=== PATIENT | female | born 1980 | race Caucasian/White ===

== ENCOUNTER 2016-09-30 01:28 | Emergency (ER) | payer OTHER ==
[~2016-09-30] VITALS: Ht 172.7 cm; Wt 69.5 kg
[2016-09-30 01:38] VITALS: BP 121/86; PULSE 98; RESP 16; O2SAT 100
--- NOTE | 2016-09-30 02:09 | ED.REPORT ---
HPI-Abd Pain F Under 40 Date of Service Sep 30, 2016 ED Provider: Roel Luque MD A 36 year old female with a medical history including ovarian cyst, peritoneal adhesions, and chronic pain issues from endometriosis presents to the ED with RLQ abdominal pain onset 0300 yesterday. The pain radiates to her right inguinal region. Associated symptoms include fever (high of 101) and generalized myalgias. The patient denies vaginal discharge or other symptoms. She was seen in the [facility] ED at 1900 last night where she received an abdominal CT and was diagnosed with ureterolithiasis, renal colic, and UTI. She was treated with IV fluids and Dilaudid but did not receive a prescription for pain medication due to multiple recent prescriptions and requests one now. She takes pain medication regularly for chronic pelvic pain. Review of her records from [facility] revealed that she had a 3 mm nonobstructive stone in the right kidney, no evidence of hydronephrosis, and essentially negative urinalysis apart from some trace leukocyte esterase. Source of her pain is not clear. She has had two prior episodes of endometritis/PID, and feels this is somewhat similar. Nursing Notes Stated Complaint: KIDNEY PAIN Chief Complaint: Female Abdominal Pain Nursing Notes Reviewed: Yes Allergies: Uncoded Allergies: CONTRAST (Allergy, Intermediate, HIVES, 09/30/16) Scheduled Doxycycline Monohyd (Doxycycline Monohyd) 100 Mg Tablet 100 MG PO BID Metronidazole (Flagyl) 500 Mg Tablet 500 MG PO Q8H Ondansetron ODT (Ondansetron ODT) 8 Mg Tab.rapdis 8 MG PO QID Scheduled PRN Naproxen (Naprosyn) 500 Mg Tablet 500 MG PO BID PRN PRN For Pain Tramadol (Tramadol) 50 Mg Tablet 100 MG PO Q6H PRN PRN For Pain General Time Seen by : 01:59 Chief Complaint Abdominal pain Hx Obtained From: Patient Arrived By: Walk-in Sudden in Onset?: Yes Onset Occurred: Yesterday Symptom Duration: Since onset Location: : RLQ Quality: Painful Radiation: : Inguinal right Severity: Current: Moderate Severity: Maximum: Moderate Associated with: Reports: Fever Pertinent Negative: Relieved by nothing Context Related History: Reports: Abdominal surgery, Adhesions, Endometriosis Recent Healthcare: Recent doctor visit, Recent testing, Prior workup Similar Sx Previous: Yes Past Medical History Past Medical History Ovarian cyst Peritoneal adhesions Endometriosis Past Surgical History Salpingectomy bilaterally Hernia repair Laparoscopy Smoking History Unknown if Ever Smoker Ambulatory Status Independent Review of Systems Review of Systems Note: + Right inguinal pain Constitutional: Reports: Fever (High of 101) Respiratory: Denies: Non-productive cough, Shortness of breath GI: Reports: Abdominal pain (RLQ), Denies: Diarrhea, Vomiting Female: Denies: Vaginal discharge Musculoskeletal: Reports: Myalgia (Generalized) Complete sys rev & neg: except as marked. Physical Exam Initial Vital Signs Vital Signs (First) Date Time Temp Pulse Resp B/P Pulse Ox O2 Delivery O2 Flow Rate FiO2 09/30/16 01:38 36.5 98 16 121/86 100 Room Air Initial VS: Reviewed Head / Eyes: Atraumatic, Normocephalic ENT: Conjunctiva normal, No scleral icterus Neck: Supple, Full range of motion Skin: Warm, Dry, No cyanosis Neurologic: Alert, Oriented, Nonfocal Psychiatric: Mood/affect normal, Behavior normal, Normal thought content General/Constitutional: Awake, Alert, No acute distress Respiratory / Chest: Breath sounds NL, Breath sounds = bilat, No respiratory distress Cardiovascular: Heart rate NL, Regular rhythm, Heart sounds NL Abdomen: Soft Tenderness/Guarding/Rebound: Positive: Tender RLQ..., Tender RUQ... 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 A urine is actually unimpressive and the CAT scan shows no hydronephrosis, only a nonobstructing 3 mm stone on the right. Her exam here shows some cervical discharge and a markedly tender uterus cervix. I suspect the source for her pain is in fact endometritis, and not a UTI. She was placed on Macrodantin, and this is now discontinued. Treated here with Rocephin, with Flagyl and doxycycline to follow. Tramadol ten tablets to tide her over until she can make contact with her pain practitioner. Re-Evaluation/Progress : Time of Eval: 02:42 Patient Status: Condition improved Re-Evaluation/Progress Note: Pelvic exam performed. Discussed with patient physical exam findings, lab results, diagnosis, and plan for discharge. Follow-up and return to the ER instructions given. Patient agrees with plan for care and all questions were addressed. Counseled Regarding: Diagnosis, Lab results, Need for follow-up, When/why to return to ED Discharge & Departure Shift Change Sign-Out Response to Therapy: Improved Primary Impression: Endometritis Additional Impression: Pelvic pain Disposition: Home Discharge Condition All VS Reviewed: Yes Condition: Improved Patient Instructions: Chronic Pelvic Pain in Women (ED), Endometritis (ED) Additional Instructions: Continue dosing twice daily with Naprosyn. Stop taking the Macrobid. Begin Flagyl three times daily. Begin Doxycycline twice daily. You may use tramadol for the next day until you can contact your physician. Zofran up to four times daily if needed for nausea. Referrals: [facility] Scribe Attestation Portions of this note were transcribed by Angelica Wolfe. I, Dr. Luque, personally performed the history, physical exam, and medical decision-making; I reviewed and confirmed the accuracy of the information in the transcribed note. Signed by: Марина Albert, 09/30/2016, 05:10 copies to: [facility] Roel Luque MD Sep 30, 2016 02:09 ANGELICA WOLFE Sep 30, 2016 02:27
[2016-09-30] MEDS ORDERED: cefTRIAXone Inj 1,000 MG, Lidocaine PF 1% Inj 2.1 ML in Syringe 0 EACH IM ONE (02:55)
[2016-09-30] MEDS ORDERED: HYDROcodone-APAP 5-325 mg Tablet PO ONE (02:55)
[2016-09-30] MEDS ORDERED: METR500T PO (03:04)
[2016-09-30] MEDS ORDERED: TRAM50TA2 PO (03:04)
[2016-09-30] MEDS ORDERED: DOXY-232 PO (03:04)
[2016-09-30] MEDS ORDERED: ONDA8TAB10 PO (03:05)
[2016-09-30] MEDS ORDERED: NAPR500T PO (03:05)
[2016-09-30 03:51] VITALS: BP 123/84; PULSE 89; RESP 16; O2SAT 100
== END 2016-09-30 03:51 | disposition home or self-care (01) ==
LOC: SED 01:28
DX: N71.9 Inflammatory disease of uterus, unspecified (principal); R10.2 Pelvic and perineal pain
CPT/HCPCS: 87070; 87210; 87491; 87591; 96372; 99284; J0696